=== PATIENT | male | born 1975 | race Caucasian/White ===

== ENCOUNTER 2023-10-23 17:08 | Emergency (ER) | payer OTHER, SELFPAY ==
--- NOTE | ~2023-10-23 | XR_ITS ---
EXAM: XR finger 3rd RT min 2V DATE: 10/23/2023 17:43 HISTORY: 3rd finger jammed and caught in cargo strap . COMPARISON: None available. FINDINGS: Normal mineralization. No fracture or dislocation. No lytic or blastic lesion. Mild scatte red degenerative change. No erosion or periosteal change. Soft tissues within normal limits. IMPRESSION: No acute osseous finding in the right third finger. Reviewed, dictated and finalized at location K. [employer]
--- NOTE | 2023-10-23 17:13 | ED.GENADULT ---
HPI - General Adult General Chief complaint: Extremity Injury, Upper Stated complaint: Swollen Middle Finger Rt Hand Time Seen by Provider: 10/23/23 17:13 Source: patient Mode of arrival: ambulatory Limitations: no limitations History of Present Illness HPI narrative: 48-year-old male presents to urgent care today with an injury to the 3rd finger of his right hand. Patient states the injury occurred yesterday while at work. 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 Patient states that he has kept it mostly immobilized today but the pain and swelling has continued. Patient has not used ice or [id number] medication to help with pain or swelling. Related Data Home Medications Medication Instructions Recorded Confirmed No Home Medications 10/23/23 10/23/23 Allergies Allergy/AdvReac Type Severity Reaction Status Date / Time acetaminophen Allergy Rash Verified 10/23/23 17:23 Review of Systems Review of Systems: CONSTITUTIONAL: Denies fever, chills, or sweats. EYES: Denies visual changes, redness, or discharge. ENT: Denies rhinorrhea, congestion, sore throat, or otalgia. CARDIOVASCULAR: Denies chest pain, palpitations, or edema. RESPIRATORY: Denies cough or dyspnea. GASTROINTESTINAL: Denies abdominal pain, nausea, vomiting, or diarrhea. GENITOURINARY: Denies dysuria or hematuria. SKIN: Denies rash or itching. MUSCULOSKELETAL: Denies back pain, positive joint pain of the 3rd finger of the right hand, and denies myalgia. NEUROLOGIC: Denies headache, numbness, or weakness. PSYCHIATRIC: Denies anxiety or depression. PMFSH Comments At the time of my signature I agree with nursing past medical history, surgical, social, and family history. There is no relevant family history pertinent to the presenting complaint. Exam Narrative: GENERAL: Well-appearing, well-nourished, and in no acute distress. HEAD: Normocephalic, atraumatic. EYES: PERRLA and EOMI. ENT: Nares clear, no rhinorrhea or epistaxis. Mucous membranes moist. NECK: Supple. No lymphadenopathy CHEST: Clear to auscultation. No respiratory distress. HEART: Regular rate and rhythm. No murmur heard. Normal peripheral pulses. ABDOMEN: Soft, nontender, nondistended, normal active bowel sounds. EXTREMITIES: Normal range of motion of all other extremities except for the 3rd finger of the right hand which is limited range of motion to flexion and extension. positive edema to the affected finger without ecchymosis. capillary refill is good. right wrist has full range of motion to flexion, extension, adduction, abduction, and rotation and denies pain. SKIN: Warm, dry, no rash. NEURO: No focal deficits. Alert and oriented x3. Course Course Level of Care: Express Care Visit Reevaluation(s) Reevaluation #1: Re-evaluated patient notified him that his x-ray is negative for any acute fractures. Most likely jammed the finger yesterday. Discussed with patient he can take Tylenol and ibuprofen as needed for the pain and did offer a finger splint for comfort. Patient verbalized understanding denies any other questions or concerns at this time. Date: 10/23/23 Time: 18:00 Vital Signs Vital signs: Vital Signs Temperature 36.3 C L 10/23/23 17:22 Pulse Rate 85 10/23/23 17:22 Respiratory Rate 18 10/23/23 17:22 Blood Pressure 137/73 10/23/23 17:22 Pulse Oximetry 98 10/23/23 17:22 Oxygen Delivery Room Air 10/23/23 17:22 Temperature 36.3 C L 10/23/23 17:24 Pulse Rate 85 10/23/23 17:24 Respiratory Rate 18 10/23/23 17:24 Blood Pressure 137/73 10/23/23 17:24 Pulse Oximetry 98 10/23/23 17:24 Oxygen Delivery Room Air 10/23/23 17:24 vital signs reviewed Medical Decision Making MDM Narrative Medical decision making narrative: due to patient's current symptoms and physical exam findings x-ray of the 3rd finger of the right hand [place]
[2023-10-23 17:22] VITALS: BP 137/73; PULSE 85; RESP 18; TEMP 36.3; O2SAT 98
[2023-10-23 17:24] VITALS: BP 137/73; PULSE 85; RESP 18; TEMP 36.3; O2SAT 98
== END 2023-10-23 18:06 | disposition home or self-care (01) ==
PROVIDERS: Emergency Provider Nurse Practitioner Family
DX: S69.91XA Unspecified injury of right wrist, hand and finger(s), initial encounter (principal); W23.0XXA Caught, crushed, jammed, or pinched between moving objects, initial encounter; Y99.0 Civilian activity done for income or pay
CPT/HCPCS: 29130; 73140; 99213; G0463

== ENCOUNTER 2025-04-25 18:27 | Emergency (ER) | payer BC, SELFPAY ==
--- NOTE | ~2025-04-25 | XR_ITS ---
XR lumbar spine 2-3V 04/25/2025 18:57 Indication: Low back pain Procedure: 3 views lumbar spine Comparison: No prior studies for comparison. Findings: There is facet hypertrophy at L4-5 and L5-S1. There is disc narrowing at L5-S1. No acute fracture, subluxation or dislocation. No evidence for spondylolisthesis. Impression: 1: Mild-moderate lumbar spondylosis most advanced at L5-S1. Reviewed, dictated and finalized at location O. Impression: 1: Mild-moderate lumbar spondylosis most advanced at L5-S1.
--- NOTE | 2025-04-25 18:29 | ED.BACK ---
HPI - Back Pain/Injury General Chief Complaint: Extremity Injury, Lower Stated Complaint: back pain Time Seen by Provider: 04/25/25 18:29 Source: patient Mode of arrival: ambulatory Limitations: no limitations History of Present Illness HPI Narrative: Dwight is a 49 year old male patient presenting to the clinic today with c/o right sided back pain with some pain radiating down the right leg. He reports he was participating in PT training-running, pushups, and completing planks. Started having some right-sided back pain after participating in PT. Denies any saddle anesthesia or loss of bowel or bladder. Took a unknown muscle relaxer for his symptoms. Rates pain currently an 03/31. Related Data Allergies Allergy/AdvReac Type Severity Reaction Status Date / Time acetaminophen Allergy Rash Verified 04/25/25 18:40 Review of Systems Review of Systems: Pertinent positives per HPI. Patient denies any fever, chills, rash, headache, visual changes, dizziness, cough, runny nose, sore throat, shortness of breath, chest pain, palpitations, nausea, vomiting, diarrhea, constipation, abdominal pain, or any urinary issues. PMFSH Comments At the time of my signature, I reviewed and agree with the nursing past medical, surgical, social, and family history. There is no relevant family history pertinent to the patient complaint. Exam Narrative: General: Well-developed, well nourished, in no apparent distress Head: Normocephalic, atraumatic. Cardio: Regular rate and rhythm, s1 and s2 normal, no murmur appreciated. Resp: Clear to auscultation bilaterally, no rhonchi, rales, wheezing or rubs. Musculoskeletal: No deformity, no tenderness to palpation over the cervical spine or thoracic spine, tenderness to palpation over the lumbar spine, right SI joint, and the right-sided paraspinous musculature, grossly normal range of motion, muscle strength strong and equal in BLE. SLT positive at approximately 40? on the right leg, SLT negative on the left, patellar reflexes 2/4 bilaterally, negative foot drop, normal gait and station Course Course Emergency Course: Portions of this record may have been created with voice recognition software. Level of Care: Express Care Visit Vital Signs Vital signs: Vital Signs Temperature 36.4 C 04/25/25 18:40 Pulse Rate 80 04/25/25 18:40 Respiratory Rate 18 04/25/25 18:40 Blood Pressure 128/71 04/25/25 18:40 Pulse Oximetry 98 04/25/25 18:40 Oxygen Delivery Room Air 04/25/25 18:40 Temperature 36.4 C 04/25/25 18:40 Pulse Rate 80 04/25/25 18:40 Respiratory Rate 18 04/25/25 18:40 Blood Pressure 128/71 04/25/25 18:40 Pulse Oximetry 98 04/25/25 18:40 Oxygen Delivery Room Air 04/25/25 18:40 Vital signs reviewed MDM - Back Pain/Injury MDM Narrative Medical decision making narrative: At the time of visit patient is resting comfortably on the exam table. Patient appears to be nontoxic. C/o right sided back pain with some pain radiating down the right leg. He reports he was participating in PT training-running, pushups, and completing planks. Started having some right-sided back pain after participating in PT. Denies any saddle anesthesia or loss of bowel or bladder. Took a unknown muscle relaxer for his symptoms. Rates pain currently an 8/10. On exam patient has tenderness to palpation over the lumbar spine, right SI joint, and the right-sided paraspinous musculature. Does have positive SLT at approximately 40? of the right leg. X-ray of the lumbar spine was ordered. Diagnostics X-ray of the lumbar spine was performed. X-ray shows lumbar spondylosis [id number] most advanced at L5-S1 Plan: I suspect patient has acute low back pain with lumbar spondylosis and back strain. Prescription for naproxen and Flexeril was sent to the pharmacy. Sedation precautions were reviewed note was given for no PT x1 week. Supportive measures were discussed with the patient and they voiced understanding discharge instructions and agrees to treatment plan. Return precautions reviewed Differential Diagnosis Differential diagnosis: Likely lumbar radiculopathy, sciatica, strain of lumbar region and other (Acute inter derangement of the knee, knee sprain, osteoarthritis, tibia fracture, femur fracture, patellar fracture) Imaging Data Radiologist's impression: ITS Impressions Lumbar Spine X-Ray 04/25/25 19:11 Impression: 1: Mild-moderate lumbar spondylosis most advanced at L5-S1. Discharge Plan Discharge Clinical Impression: Lumbar spondylosis Acute low back pain Qualifiers: Back pain laterality: right Sciatica presence: without sciatica Qualified Code(s): M54.50 - Low back pain, unspecified Patient Disposition: Home Condition: Stable Instructions: Antibiotic Form, Low Back Strain (ED), Acute Low Back Pain (ED), Lower Back Exercises (ED) Additional Instructions: X-ray shows no acute fracture or malalignment. Does have mild to moderate lumbar spondylosis most advanced L5-S1 Take any prescription medication only as prescribed-naproxen and Flexeril Be mindful of sedation precautions given to you if taking a muscle relaxer. May use heat or ice to the affected area Consider massage or chiropractor adjustment if this was discussed with provider May use blue emu, lidocaine patches, or asper cream to affected area- do not apply heat or ice directly over cream- can cause burn. Complete appropriate back stretching exercises. Follow up with your PCP in 3-5 days if symptom persist. Patient Language: Luxembourgish Prescriptions: New naproxen 500 mg tablet 500 mg PO BID PRN (Reason: pain) 7 Days Qty: 14 0RF cyclobenzaprine 10 mg tablet 10 mg PO Q8H PRN (Reason: muscle spasm) 7 Days Qty: 21 0RF Follow-up/Referrals: UNKNOWN,DOCTOR [Primary Care Provider] Stand Alone Forms: Work/School Release IP Time of Disposition: 19:16 Quality NIHSS Nursing Documentation ED NIHSS nursing documentation: reviewed/agree
[2025-04-25 18:40] VITALS: BP 128/71; PULSE 80; RESP 18; TEMP 36.4; O2SAT 98
== END 2025-04-25 19:21 | disposition home or self-care (01) ==
PROVIDERS: Emergency Provider Nurse Practitioner Family
DX: M47.816 Spondylosis without myelopathy or radiculopathy, lumbar region (principal); M54.50 Low back pain, unspecified
CPT/HCPCS: 72100; 99213; G0463